=== PATIENT | male | born 1945 | race Caucasian/White ===

== ENCOUNTER 2017-12-25 19:31 | Emergency (ER) | payer MEDICARE ==
[~2017-12-25] VITALS: Ht 165.1 cm; Wt 86.2 kg
[~2017-12-25 19:31] MED LIST: ASPIR 8181 MG PO; BENAZEPRIL HCL10 MG PO; BUPROPION HCL100 MG PO; CYMBALTA30 MG PO; DOXYCYCLINE HY100 MG PO; FINASTERIDE5 MG PO; FLOVENT DISKUS50 MCG INH; FLUOXETINE HCL20 M1 PO; GLIPIZIDE5 MG PO; METFORMIN HCL500 MG PO; METOPROLOL SUCC25 MG PO; NAPROXEN250 MG PO; OMEPRAZOLE40 MG PO; RANITIDINE HCL150 MG PO; TAMSULOSIN HCL0.4 MG PO; VYTORIN 10-101 EACH PO; VYTORIN 10-401 EACH PO; ZOLPIDEM TARTRA10 MG PO
[2017-12-25] MEDS ORDERED: ONDANSETRON HCL INJ 2 MG/ML VIAL IV STA (19:39)
[2017-12-25] MEDS ORDERED: MORPHINE SULFATE 2 MG/ML SYR IV STA ×2 (19:39→22:35)
[2017-12-25] MEDS ORDERED: NITROGLYCERIN 2% OINT 1 GM PKT TOP ONE (19:45)
[2017-12-25 20:04] LABS: BASOPHILS # (AUTO) 0.1 (0.0-0.1); BASOPHILS % 0.8 % (0.0-1.0); EOSINOPHILS # (AUTO) 0.9 (0.0-0.4); EOSINOPHILS % 9.6 % (0.0-6.0); HEMATOCRIT 42.5 % (38.2-49.6); HEMOGLOBIN 14.8 g/dL (14.0-18.0); LYMPHOCYTES # (AUTO) 2.2 (1.0-3.2); LYMPHOCYTES % 24.7 % (18.0-39.1); MEAN CORPUSCULAR HEMOGLOBIN 30.2 pg (28-32); MEAN CORPUSCULAR HGB CONC 34.8 g/dL (31-35); MEAN CORPUSCULAR VOLUME 86.7 fL (81-99); MONOCYTES # (AUTO) 1.1 (0.2-0.8); NEUTROPHILS # (AUTO) 4.7 (2.1-6.9); NEUTROPHILS % 52.2 % (38.7-80.0); PLATELET COUNT 198 x10e3/uL (140-360); RED CELL DISTRIBUTION WIDTH 13.5 % (11.7-14.4)
[2017-12-25 20:10] LABS: INR 0.89; PARTIAL THROMBOPLASTIN TIME 22.6 seconds (23.8-35.5); PROTHROMBIN TIME 12.9 seconds (11.9-14.5)
[2017-12-25 20:18] LABS: ALANINE AMINOTRANSFERASE 29 IU/L (0-55); ALBUMIN 3.6 g/dL (3.5-5.0); ALBUMIN/GLOBULIN RATIO 1.2 (0.8-2.0); ALKALINE PHOSPHATASE 112 IU/L (40-150); AMYLASE 46 U/L (25-125); BLOOD UREA NITROGEN 24 mg/dL (7-26); BUN/CREATININE RATIO 22 (6-25); CALCIUM 9.5 mg/dL (8.4-10.2); CARBON DIOXIDE 16 mmol/L (22-29); CHLORIDE 108 mmol/L (98-107); CREATININE, SERUM 1.07 mg/dL (0.72-1.25); EST GLOMERULAR FILTRATION RATE > 60 ML/MIN (60-); GLUCOSE 268 mg/dL (74-118); LIPASE 73 U/L (8-78); MAGNESIUM 1.6 MG/DL (1.3-2.1); SODIUM 138 mmol/L (136-145)
[2017-12-25] MEDS ORDERED: SODIUM CHLORIDE 0.9% 500ML 500 ML IV ONE (20:30)
--- NOTE | 2017-12-25 20:37 | Diagnostic Imaging Report ---
EXAM: CHEST SINGLE (PORTABLE), AP 1 view INDICATION: Bilateral arm and neck pain COMPARISON: None FINDINGS: LINES/TUBES: None LUNGS: No consolidations or edema. Mild subsegmental bibasilar atelectasis. PLEURA: No effusions or pneumothorax. HEART AND MEDIASTINUM: Normal size and contour. BONES AND SOFT TISSUES: No acute findings. IMPRESSION: No acute thoracic abnormality. Signed by: Dr. Kamala Hernandez M.D. on 12/25/2017 8:33 PM
[2017-12-25] MEDS ORDERED: IOPAMIDOL 370 MG/ML 200 ML INFUS..BTL INJ ONE (21:01)
[2017-12-25] MEDS ORDERED: SODIUM CHLORIDE 0.9% 100 ML 100 ML ONE (21:01)
[2017-12-25 21:12] LABS: ABG HCO3 14 mmol/L (23-28); ABG PCO2 20 mmHg (41-51); ABG PH 7.46 (7.31-7.41); ABG PO2 154 mmHg (80-105)
[2017-12-25 21:16] LABS: CREATINE KINASE 322 IU/L (30-200)
[2017-12-25 22:15] LABS: AMPHETAMINES SCREEN,URINE NEGATIVE (NEGATIVE); BENZODIAZEPINES SCREEN,URINE NEGATIVE (NEGATIVE); PHENCYCLIDINE SCREEN,URINE NEGATIVE (NEGATIVE)
[2017-12-25 22:18] LABS: CLARITY,URINE CLEAR (CLEAR); COLOR,URINE YELLOW (YELLOW); LEUKOCYTE ESTERASE ,URINE NEGATIVE (NEGATIVE); NITRITE,URINE NEGATIVE (NEGATIVE)
[2017-12-25 22:19] LABS: BILIRUBIN,URINE NEGATIVE (NEGATIVE); KETONES,URINE 1+ (NEGATIVE); PROTEIN,URINE DIPSTICK NEGATIVE (NEGATIVE); URINE UROBILINOGEN 0.2 mg/dL (0.2 - 1)
--- NOTE | 2017-12-25 22:26 | Diagnostic Imaging Report ---
EXAM: CT CHEST W INDICATION: Chest pain radiating down both arms COMPARISON: None TECHNIQUE: Multidetector CT scanning of the chest was performed. Coronal and sagittal multiplanar reformations were obtained. Dose modulation, iterative reconstruction, and/or weight based adjustment of the mA/kV was utilized to reduce the radiation dose to as low as reasonably achievable. IV Contrast: 100 cc Isovue-370 CTDIvol has been reviewed. It is below the limits set by the Radiation Protocol Committee (RPC). FINDINGS: LUNGS AND AIRWAYS: The trachea and major bronchi are unremarkable. No consolidations or edema. PLEURA: No effusions or pneumothorax. HEART, MEDIASTINUM, VESSELS: No acute findings. No thoracic aortic aneurysm or dissection. No pulmonary embolism. Calcified mediastinal lymph nodes. UPPER ABDOMEN: No acute findings. MUSCULOSKELETAL: No acute findings. IMPRESSION: Normal CT of the chest. Signed by: Dr. Kamala Hernandez M.D. on 12/25/2017 10:22 PM
[2017-12-25 22:53] LABS: BACTERIA,URINE RARE /HPF; EPITHELIAL CELLS,URINE RARE /LPF; MUCUS,URINE FEW (RARE); RBC,URINE 0-5 /HPF (0-5); WBC,URINE (MAN) 0-5 /HPF (0-5)
[2017-12-25 23:18] VITALS: BP 116/80
== END 2017-12-25 23:20 | disposition other institution (70) ==
LOC: ER 19:31
DX: R07.2 Precordial pain (principal); I49.8 Other specified cardiac arrhythmias; I49.5 Sick sinus syndrome
CPT/HCPCS: 36415; 71045; 71260; 80053; 80307; 81001; 82150; 82550; 82553; 82805; 83690; 83735; 83880; 84484; 85025; 85610; 85730; 93005; 96374; 96375; 99284; J2270; J2405; J7040; Q9967; 36600